=== PATIENT | female | born 1975 | race Caucasian/White ===

== ENCOUNTER → 2020-06-17 13:21 | Outpatient (CLI) | payer OTHER, SELFPAY ==
--- NOTE | ~2020-06-17 | US_ITS ---
EXAMINATION: US transvaginal DATE: 06/17/2020 13:43 INDICATION: Menorrhagia TECHNIQUE: Multiple endovaginal sonographic images of the pelvis were obtained. COMPARISON: None. FINDINGS: The uterus measures 9.5 x 3.9 x 4 cm. The endometrial complex measures 8 mm. The ovaries ar e not visualized however no adnexal abnormality is seen. There is no free fluid in the pelvis. IMPRESSION: 1. No sonographic correlate for the patient's symptoms. Reviewed, dictated and finalized at location A. WORKER PERSON
== END ==
PROVIDERS: Visit Provider Nurse Practitioner
DX: N92.0 Excessive and frequent menstruation with regular cycle (principal)
CPT/HCPCS: 76830

== ENCOUNTER → 2020-07-31 15:36 | Outpatient (CLI) | payer OTHER, SELFPAY ==
--- NOTE | ~2020-07-31 | MM_ITS ---
EXAMINATION: MM screening [facility] BI w delores HISTORY: Screening mammogram TECHNIQUE: Craniocaudal and mediolateral oblique 3-D tomosynthesis images were obtained and synthetic 2-D images were generated. CAD analysis was submitted and interpreted. COMPARISON: 06/11/2019, 12/18/2018, 07/20/2018 diagnostic left mammogram and limited left breast ultraso und examinations 07/10/2018, 06/27/2017, 06/05/2016 bilateral digital screening mammogram examinations BREAST PARENCHYMAL COMPOSITION: There are scattered areas of fibroglandular density. FINDINGS: Bilateral small axillary tail intramammary lymph nodes. There is no evidence of suspicious mass, calcification, or architectural distortion to suggest malignancy in either breast. There has be en no suspicious interval change. IMPRESSION: 1. No mammographic evidence of malignancy. 2. Recommend routine screening mammography in one year. BI-RADS Category 2: Benign finding(s). Reviewed, dictated and finalized at location A. OGIC NURSE
== END ==
PROVIDERS: Visit Provider Nurse Practitioner
DX: Z12.31 Encounter for screening mammogram for malignant neoplasm of breast (principal)
CPT/HCPCS: 77063; 77067

== ENCOUNTER → 2020-08-29 00:04 | Outpatient (CLI) | payer OTHER, SELFPAY ==
[2020-08-29 19:00] LABS: SARS-CoV-2 RNA PCR Negative
== END ==
PROVIDERS: Visit Provider Obstetrics & Gynecology Gynecology
DX: Z01.812 Encounter for preprocedural laboratory examination (principal); Z20.822 Contact with and (suspected) exposure to COVID-19
CPT/HCPCS: C9803; U0003; U0005

== ENCOUNTER 2020-08-29 07:42 | Outpatient (CLI) | payer OTHER, SELFPAY ==
[2020-08-29 08:17] LABS: Hematocrit 36.2 % (37.0-47.0); Hemoglobin 10.9 g/dL (12.0-15.0)
== END 2020-08-29 07:43 | disposition home or self-care (01) ==
PROVIDERS: PCP Family Medicine Adolescent Medicine; Visit Provider Anesthesiology
DX: Z01.818 Encounter for other preprocedural examination (principal); D64.9 Anemia, unspecified
CPT/HCPCS: 36415; 85014; 85018

== ENCOUNTER 2020-09-01 01:48 | Day surgery (SDC) | payer OTHER, SELFPAY ==
[2020-08-26 10:04] VITALS: BMI 25.0
--- NOTE | 2020-08-29 14:40 | P.PNAN_ITS ---
Anes - Initial Pre Proc Eval Procedure: Operation Date: 09/01/20 07:30 Proposed Procedures p Hysteroscopy Dilation and Curettage With Myosure - Sierra Lewis MD Date/Time: 08/29/20 14:40 Surgeon: Sierra Lewis MD Pre Op Diagnosis: Endometrial Polyps Patient Data Age: 44 Gender: F Height: 1.7 m Weight: 72.57 kg Allergies Allergy/AdvReac Type Severity Reaction Status Date / Time No Known Allergies Allergy Mild Verified 09/01/20 06:22 Home Medications Medication Instructions Recorded Confirmed Type duloxetine 60 mg PO DAILY 07/06/19 09/01/20 History ergocalciferol (vitamin D2) 1,250 mcg PO DAILY 07/06/19 09/01/20 History [Vitamin D2] pantoprazole 40 mg PO DAILY 07/06/19 09/01/20 History dextroamphetamine-amphetamine 20 mg PO DAILY 08/26/20 09/01/20 History [Adderall XR] ferrous sulfate 324 mg PO DAILY 08/26/20 09/01/20 History Patient hx anesthesia problems: none Family hx anesthesia problems: none [facility] Past Medical History Medical History (Updated 08/29/20 @ 14:41 by Joaquin Greenberg MD) Anxiety Chronic GERD Social History Social History Smoking status: Never smoker Second hand tobacco smoke exposure: No Substance use: never Living arrangements: with family Spiritual care concerns: No Anes - Eval Final PreProcedure Day of Procedure 08/29/20 14:40 Patient weight: normal Heart: regular rate and rhythm Lungs: clear to auscultation and normal air movement Airway: Mallampati scale class II Neurological: alert and oriented Last oral intake: >/= 8 hours ASA classification: II Emergent: no Anesthetic plan: proceed Anesthesia type and monitoring: general GIVS and LMA Informed Consent: The patient's anesthetic plan and its attendant risks and benefits were discussed with the patient/family/POA. Questions were solicited and answers provided to the satisfaction of the patient/family/POA.
[2020-09-01] MEDS: ACETAMINOPHEN 500 MG TABLET 1000 MG PO (06:27)
[2020-09-01] MEDS: LACTATED RINGERS 1,000 ML 30 ML IV CONT (06:46)
[2020-09-01 07:12] VITALS: BP 116/65; PULSE 63; RESP 16; TEMP 36.3; O2SAT 100
--- NOTE | 2020-09-01 07:23 | PM.HPGS ---
History of Present Illness History of Present Illness Consent: Risks, benefits, and alternatives have been discussed and questions answered. Patient agrees to proceed with procedure. Chief complaint: Endometrial Polyps Narrative: Criss Carlisle is a 44 year old female here for menorrhagia. Office hysteroscopy showed several polyps that were not able to be removed. Recommend to proceed with hysteroscopy with myosure and D&C. Risks of infection, bleeding, perforation, and fluid imbalance reviewed. Patient agrees to proceed. Review of Systems Review of Systems: Narrative: not repeated day of surgery; patient states no changes in status PMFSH Past Medical History Medical History (Updated 09/01/20 @ 07:27 by Sierra Lewis MD) Anxiety Chronic GERD (normal spontaneous vaginal delivery) x 1 Oral cyst 7 surgical procedures for removal Spontaneous x 2 Status post hysteroscopy Surgical History Surgical History (Updated 09/01/20 @ 07:26 by Sierra Lewis MD) History of x 2 Social History Social History Smoking status: Never smoker Second hand tobacco smoke exposure: No Substance use: never Living arrangements: with family Spiritual care concerns: No Meds Home Medications and Allergies Home Medications Medication Instructions Recorded Confirmed Type duloxetine 60 mg PO DAILY 07/06/19 09/01/20 History ergocalciferol (vitamin D2) 1,250 mcg PO DAILY 07/06/19 09/01/20 History [Vitamin D2] pantoprazole 40 mg PO DAILY 07/06/19 09/01/20 History dextroamphetamine-amphetamine 20 mg PO DAILY 08/26/20 09/01/20 History [Adderall XR] ferrous sulfate 324 mg PO DAILY 08/26/20 09/01/20 History Allergies Allergy/AdvReac Type Severity Reaction Status Date / Time No Known Allergies Allergy Mild Verified 09/01/20 06:22 Vital Signs Vital Signs - 24 hr 09/01/20 07:12 Temperature 97.3 F L Pulse Rate 63 Respiratory Rate 16 Blood Pressure 116/65 Pulse Oximetry 100 Exam Const: General: healthy appearing and alert Orientation/consciousness: patient oriented x3 Resp: Effort & Inspection: normal respiratory effort Auscultation: clear to auscultation bilaterally Cardio: Rate: regular rate Rhythm: regular rhythm GI: GI Palp: Yes Soft to palpation, No Tenderness to palpation present (GI) and No Palpable mass present : External Female Exam: normal external appearance Speculum Exam - Vagina: normal appearance of the vagina and normal vaginal discharge Speculum Exam - Cervix: normal appearance of the cervix Bimanual exam- vagina & uterus: uterine size normal and consistency normal Bimanual Exam- Adnexa, other: normal adnexae and No adnexal tenderness Neuro: General: patient oriented x3 Assessment and Plan Assessment and plan (1) Menorrhagia: Code(s): N92.0 - Excessive and frequent menstruation with regular cycle Status: Acute Assessment and Plan: proceed with myosure resection of suspected polyps with D&C
--- NOTE | 2020-09-01 07:28 | WPDHPUPDATE1 ---
History and Physical Update Update Date/Time: 09/01/20 07:28 History and Physical has been reviewed, including an updated exam of the patient. There are NO changes in the patient's condition. Risks, benefits, and alternatives have been discussed and questions answered. Patient agrees to proceed with procedure.
[2020-09-01] MEDS: KETOROLAC 30 MG/ML VIAL (*BKC) IV PUSH (07:56)
--- NOTE | 2020-09-01 08:01 | P.OP_ITS ---
Procedure Note - Detailed Date of procedure: 09/01/20 Pre-op diagnosis: Endometrial Polyps Menorrhagia Post-op diagnosis: same Procedure performed: D&C hysteroscopy with myosure resection of polyps Description of procedure: The patient was taken to the operating room and placed in the dorsal lithotomy position under anesthesia. She was prepped and draped in usual sterile fashion. Kingsford speculum was placed in the vagina and the cervix is grasped on the anterior lip with a tenaculum. The cervix is injected in each quadrant with 1% lidocaine. The sound is used and unable to enter the internal os. Os Finders are used and the cervix was able to opened. The uterus is then sounded to 10cm. The cervix is serially dilated with Hegar. The diagnostic hysteroscope was placed with the stated findings. The MyoSure device was opened and placed and under direct visualization the multiple polyps are excised. The camera and device are removed and the medium sharp curette is used to sharply curette the endometrium until a good uterine cry was noted in all areas. All instruments were then removed and the patient is taken to recovery in stable condition after being awakened from anesthesia. Sponge, needle, and instrument counts are correct per the OR staff. Anesthesia: MAC and local Surgeon: Sierra Lewis MD Estimated blood loss (mL): 5 Drains: No Packing: No Pathology: yes (endometrial curettings and shavings) Complications: No immediate complications Condition: stable Disposition: PACU Findings: cervix stenotic; uterus 10 cm; multiple polyps noted in lower portion of uterus
[2020-09-01 08:05] VITALS: BP 132/69; PULSE 70; RESP 16; O2SAT 100
[2020-09-01 08:30] VITALS: BP 122/60; PULSE 60; RESP 20
[2020-09-01 09:00] VITALS: BP 127/67; PULSE 61; RESP 20
[2020-09-01 09:20] VITALS: BP 132/69; PULSE 61; RESP 20
== END 2020-09-01 09:25 | disposition home or self-care (01) ==
PROVIDERS: PCP Family Medicine Adolescent Medicine; Visit Provider Obstetrics & Gynecology Gynecology
PROC: 0U5B8ZZ Destruction of Endometrium, Via Natural or Artificial Opening Endoscopic (ICD-10-PCS; CPT 58563; principal; 2020-09-01 07:30)
DX: N92.0 Excessive and frequent menstruation with regular cycle (principal); N84.0 Polyp of corpus uteri; K21.9 Gastro-esophageal reflux disease without esophagitis; F41.9 Anxiety disorder, unspecified
CPT/HCPCS: 58558; 36415; 85014; 85018; 88305; A9270; C9803; J1100; J1885; J2250; J2405; J2704; J3010; J7030; J7120; U0003; U0005

== ENCOUNTER → 2021-10-05 16:05 | Outpatient (CLI) | payer OTHER, SELFPAY ==
--- NOTE | ~2021-10-05 | MM_ITS ---
EXAMINATION: MM screening [facility] BI w delores HISTORY: Screening mammogram TECHNIQUE: Craniocaudal and mediolateral oblique 3-D tomosynthesis images were obtained and synthetic 2-D images were generated. CAD analysis was submitted and interpreted. COMPARISON: July 31, 2020 bilateral screening mammogram 06/11/2019 diagnostic left mammogram and left breast ultrasound 12/18/2018 diagnostic left mammogram and left breast Limited ultrasound 07/20/2018 diagnostic left mammogram and limited left breast ultrasound 07/10/2018 bilateral screening mammogram BREAST PARENCHYMAL COMPOSITION: There are scattered areas of fibroglandular density. FINDINGS: There is no evidence of suspicious mass, calcification, or architectural distortion to sugg est malignancy in either breast. There has been no suspicious interval change. IMPRESSION: 1. No mammographic evidence of malignancy. 2. Recommend routine screening mammography in one year. BI-RADS Category 1: Negative Reviewed, dictated and finalized at location A.
== END ==
PROVIDERS: Visit Provider Nurse Practitioner
DX: Z12.31 Encounter for screening mammogram for malignant neoplasm of breast (principal)
CPT/HCPCS: 77063; 77067

== ENCOUNTER 2022-04-26 11:41 | Day surgery (SDC) | payer OTHER, SELFPAY ==
[2022-03-19 13:34] VITALS: BMI 27.5
[2022-04-09 13:18] VITALS: BMI 27.2
[2022-04-26 12:21] VITALS: BP 117/85; PULSE 76; RESP 12; TEMP 37.4; O2SAT 100; BMI 27.3
--- NOTE | 2022-04-26 12:27 | PM.HPGS ---
History of Present Illness History of Present Illness Consent: Risks, benefits, and alternatives have been discussed and questions answered. Patient agrees to proceed with procedure. Chief complaint: Neoplasm Screening Narrative: Criss Carlisle is a 46 year old female Presents for screening colonoscopy. Patient's current weight appetite and bowel movements are normal. She denies abdominal pain. She has had no bleeding. Family history is noncontributory. Patient presents today for screening exam. Review of Systems Review of Systems: Review of systems noncontributory. [facility] Past Medical History Medical History (Updated 04/26/22 @ 12:28 by Nestor Alexander MD) Anxiety Chronic GERD Menorrhagia (normal spontaneous vaginal delivery) x 1 Oral cyst 7 surgical procedures for removal Spontaneous x 2 Surgical History Surgical History (Updated 08/06/21 @ 15:25 by Stephen Herrera MD) History of x 2 History of dilatation and curettage 09/07 with hysteroscopy Family History Family History (Updated 08/10/21 @ 10:10 by Cleve Maldonado MA) Father Heart disease Hypertension Liver disease Malignant neoplasm of prostate Mother Hypertension Sibling Hypertension Social History Social History (Updated 08/10/21 @ 10:11 by Cleve Maldonado MA) Smoking status: Never smoker Second hand tobacco smoke exposure: No Alcohol intake: current Drinks per week: 10 Substance use: never Substance use type: does not use Living arrangements: with family Gender identity (if verbalized by the patient): Female Sexual Orientation (if Verbalized by the Patient): Straight or Heterosexual Spiritual care concerns: No Agree to blood products: Yes Meds Home Medications and Allergies Home Medications Medication Instructions Recorded Confirmed Type duloxetine 60 mg capsule,delayed See Rx Instructions .Route 10/08/21 04/09/22 Rx release .COMPLEX #90 caps sodium,potassium,mag sulfates 17.5 See Rx Instructions PO .COMPLEX 03/19/22 Rx gram-3.13 gram-1.6 gram oral soln #354 mL (Suprep Bowel Prep Kit) pantoprazole 40 mg tablet,delayed 40 mg PO DAILY #90 tabs 04/15/22 04/26/22 Rx release dextroamphetamine-amphetamine ER 20 mg PO PRN PRN Anxiety 04/26/22 04/26/22 History 20 mg 24hr capsule,extend release (Adderall XR) norelgestromin 150 mcg-e.estradiol 1 patch transdermal WEEKLY 04/26/22 04/26/22 History 35 mcg/24 hr weekly transderm patch (Xulane) Allergies Allergy/AdvReac Type Severity Reaction Status Date / Time No Known Allergies Allergy Mild Verified 04/26/22 12:20 Vital Signs Vital Signs - 24 hr 04/26/22 12:21 Temperature 99.3 F Pulse Rate 76 Respiratory Rate 12 Blood Pressure 117/85 Pulse Oximetry 100 Oxygen Delivery Room Air Exam Narrative: Physical exam reveals patient to be alert. Vital signs stable. HEENT exam is unremarkable. Patient is anicteric. Lungs are clear to auscultation and percussion. Heart is without murmur or extra sounds. Abdomen bowel sounds present soft nontender with no organomegaly. Digital external rectal exam is normal. Assessment and Plan Assessment and plan (1) Encounter for screening colonoscopy: Code(s): Z12.11 - Encounter for screening for malignant neoplasm of colon Status: Acute Assessment and Plan: Patient presents for screening colonoscopy. Appears to be at average risk for colon polyps. Further recommendations will be given after endoscopy.
--- NOTE | 2022-04-26 12:33 | WPDANESEPPF ---
Anes - Initial Pre Proc Eval Procedure: Operation Date: 04/26/22 13:30 Proposed Procedures p Screening Colonoscopy - Nestor Alexander MD Date/Time: 04/26/22 12:33 Surgeon: Nestor Alexander MD Pre Op Diagnosis: Neoplasm Screening Patient Data Age: 46 Gender: F Height: 1.7 m Weight: 79.25 kg Last Vital Signs Temp 37.4 C 04/26/22 12:21 Pulse 76 04/26/22 12:21 Resp 12 04/26/22 12:21 BP 117/85 04/26/22 12:21 Pulse Ox 100 04/26/22 12:21 O2 Del Method Room Air 04/26/22 12:21 Allergies Allergy/AdvReac Type Severity Reaction Status Date / Time No Known Allergies Allergy Mild Verified 04/26/22 12:20 Home Medications Medication Instructions Recorded Confirmed Type duloxetine 60 mg capsule,delayed See Rx Instructions .Route 10/08/21 04/09/22 Rx release .COMPLEX #90 caps sodium,potassium,mag sulfates 17.5 See Rx Instructions PO .COMPLEX 03/19/22 Rx gram-3.13 gram-1.6 gram oral soln #354 mL (Suprep Bowel Prep Kit) pantoprazole 40 mg tablet,delayed 40 mg PO DAILY #90 tabs 04/15/22 04/26/22 Rx release dextroamphetamine-amphetamine ER 20 mg PO PRN PRN Anxiety 04/26/22 04/26/22 History 20 mg 24hr capsule,extend release (Adderall XR) norelgestromin 150 mcg-e.estradiol 1 patch transdermal WEEKLY 04/26/22 04/26/22 History 35 mcg/24 hr weekly transderm patch (Xulane) Patient hx anesthesia problems: none Family hx anesthesia problems: none Results Review: All pre-operative results and documents have been reviewed as part of the pre-operative evaluation. [facility] Past Medical History Medical History Anxiety Chronic GERD Menorrhagia (normal spontaneous vaginal delivery) x 1 Oral cyst 7 surgical procedures for removal Spontaneous x 2 Surgical History Surgical History History of x 2 History of dilatation and curettage 09/07 with hysteroscopy Family History Family History Father Heart disease Hypertension Liver disease Malignant neoplasm of prostate Mother Hypertension Sibling Hypertension Social History Social History Smoking status: Never smoker Second hand tobacco smoke exposure: No Alcohol intake: current Drinks per week: 10 Substance use: never Substance use type: does not use Living arrangements: with family Gender identity (if verbalized by the patient): Female Sexual Orientation (if Verbalized by the Patient): Straight or Heterosexual Spiritual care concerns: No Agree to blood products: Yes Anes - Eval Final PreProcedure Day of Procedure 04/26/22 12:33 Patient weight: overweight Heart: regular rate and rhythm Lungs: clear to auscultation Airway: Mallampati scale class II Neurological: alert and oriented Last oral intake: >/= 8 hours ASA classification: II Emergent: no Anesthetic plan: proceed Anesthesia type and monitoring: general GIVS and standard monitoring Results Review: All pre-operative results and documents have been reviewed as part of the pre-operative evaluation. Informed Consent: The patient's anesthetic plan and its attendant risks and benefits were discussed with the patient/family/POA. Questions were solicited and answers provided to the satisfaction of the patient/family/POA.
[2022-04-26] MEDS: LACTATED RINGERS 1,000 ML 150 ML IV CONT (12:34)
[2022-04-26 13:11] VITALS: BP 139/83; PULSE 95; RESP 16; O2SAT 100
[2022-04-26 13:21] VITALS: BP 117/66; PULSE 78; RESP 16; O2SAT 100
[2022-04-26 13:31] VITALS: BP 116/68; PULSE 71; RESP 16; O2SAT 100
--- NOTE | 2022-04-26 13:35 | WPDANESPN ---
Anes - Prog Note Post-Op Date/Time: 04/26/22 13:35 Cardiovascular status: normal Respiratory status: normal Airway patency: baseline Mental status: baseline Post-Op hydration status: normal Vital Signs: Last Vital Signs Temp 37.4 C 04/26/22 12:21 Pulse 95 04/26/22 13:11 Resp 16 04/26/22 13:11 BP 139/83 04/26/22 13:11 Pulse Ox 100 04/26/22 13:11 O2 Del Method Room Air 04/26/22 13:11 Pain Score (VAS): 0/10 I/O: Intake & Output 04/25/22 04/26/22 04/26/22 23:59 07:59 15:59 Intake Total 150 Balance 150 Patient Feedback: Patient satisfied with anesthetic care.
--- NOTE | 2022-04-26 14:01 | SUR.PHASEII ---
1330; PT AWAKE AND ALERT. DENIES PAIN. STATES SHE IS READY TO GO HOME AND EAT LUNCH. 1350; RIDE HAS ARRIVED
== END 2022-04-26 13:50 | disposition home or self-care (01) ==
PROVIDERS: PCP Family Medicine Adolescent Medicine; Visit Provider Internal Medicine Gastroenterology
PROC: 0DJD8ZZ Inspection of Lower Intestinal Tract, Via Natural or Artificial Opening Endoscopic (ICD-10-PCS; CPT 45378; principal; 2022-04-26 13:30)
DX: Z12.11 Encounter for screening for malignant neoplasm of colon (principal)
CPT/HCPCS: 45378

== ENCOUNTER → 2022-08-30 15:45 | Outpatient (CLI) | payer OTHER, SELFPAY ==
--- NOTE | ~2022-08-30 | XR_ITS ---
EXAM: [id number] DATE: 08/30/2022 16:21 HISTORY: Pain in left knee s/p fall down stairs 3 wks ago,med pain . COMPARISON: None available. FINDINGS: Normal mineralization. No fracture or dislocation. No lytic or blastic lesion. Mild medial and lateral compartment osteoarthritis. No erosion or periosteal change. Soft tissues within normal limits. Trace left knee joint fluid. IMPRESSION: No acute osseous finding in the left knee. Reviewed, dictated and finalized at location K.
== END ==
PROVIDERS: PCP Family Medicine Adolescent Medicine; Visit Provider Family Medicine Adolescent Medicine
DX: M25.562 Pain in left knee (principal)
CPT/HCPCS: 73560

== ENCOUNTER → 2022-09-01 08:38 | Outpatient (CLI) | payer OTHER, SELFPAY ==
--- NOTE | ~2022-09-01 | MR_ITS ---
EXAMINATION: MR knee LT wo con DATE: 09/01/2022 09:32 INDICATION: Medial left knee pain and effusion post injury 3 weeks prior TECHNIQUE: Magnetic resonance imaging (MRI) of the left knee was performed without intravenous contra st. Sequences included coronal PD-weighted FSE, coronal PD-weighted FS FSE, sagittal T2-weighted FSE , sagittal PD-weighted FS FSE and axial PD weighted fat saturated FSE. COMPARISON: None. FINDINGS: Medial compartment: Medial meniscus is normal. Articular cartilage is normal. Lateral compartment: Small longitudinal horizontal tear extending to the inferior articular surface along the inferior art icular surface of the posterior horn of the lateral meniscus. Partial-thickness chondral ulceration w ithout degenerative subchondral changes along the central weightbearing lateral femoral condyle. Mild partial-thickness cartilage loss with smooth chondral surface along the lateral tibial plateau. Patellofemoral compartment: Deep chondral fissuring without degenerative subchondral changes at the medial patellar facet, apical ridge and medial side of the lateral facet. Additional mild partial-thickness chondral fissuring wit hout degenerative subchondral changes at the trochlear groove and medial trochlea. Ligaments and tendons: Anterior and posterior cruciate ligaments are normal. Mild edema surrounding the normal appearing med ial collateral ligament consistent with low-grade sprain. The fibular collateral ligament complex is normal. The extensor mechanism is normal. The visualized medial and lateral hamstring tendons as well as the iliotibial band are normal. Fluid: Minimal left knee joint effusion at the suprapatellar pouch. No loose osteochondral bodies identified . Osseous/other: Marrow edema along the posterior margins of the medial and lateral tibial plateaus, the former surrou nding small linear low signal intensity trabecular fracture line underlying the articular surface at the posterior medial aspect of the medial tibial plateau. No definitive fracture line at the lateral tibial plateau is more likely represents a bone contusion. Additional subarticular bone contusion wit h marrow edema and without discrete fracture line at the head of the fibula. No pathologic marrow rep lacing process. Increased fluid signal at the superficial suprapatellar fat pad consistent with fat p ad impingement syndrome. IMPRESSION: 1. Nondisplaced subarticular impaction fracture line along the posterior medial rim of the medial tib ial plateau and bone contusions along the posterior rim of the lateral plateau and underlying the art icular surface at the proximal head of the fibula. 2. Small longitudinal horizontal tear extending to the inferior articular surface of the posterior ho rn of the lateral meniscus. 3. Mild osteoarthritis with moderate grade chondromalacia in the lateral and patellofemoral compartme nts. 4. Low-grade sprain of the medial collateral ligament. 5. Mild edema in the superficial suprapatellar fat pad consistent with fat pad impingement syndrome. Reviewed, dictated and finalized at location B. IMPRESSION: 1. Nondisplaced subarticular impaction fracture line along the posterior medial rim of the medial tibial plateau and bone contusions along the posterior rim o f the lateral plateau and underlying the articular surface at the proximal head of the fibula. 2. Small longitudinal horizontal tear extending to the inferior articular surfa ce of the posterior horn of the lateral meniscus. 3. Mild osteoarthritis with moderate grade chondromalacia in the lateral and pa tellofemoral compartments. 4. Low-grade sprain of the medial collateral ligament. 5. Mild edema in the superficial suprapatellar fat pad consistent
== END ==
PROVIDERS: PCP Family Medicine Adolescent Medicine; Visit Provider Family Medicine Adolescent Medicine
DX: S82.145A Nondisplaced bicondylar fracture of left tibia, initial encounter for closed fracture (principal); S83.282A Other tear of lateral meniscus, current injury, left knee, initial encounter; S83.412A Sprain of medial collateral ligament of left knee, initial encounter; R60.9 Edema, unspecified; T14.90XA Injury, unspecified, initial encounter
CPT/HCPCS: 73721

== ENCOUNTER → 2022-11-01 14:50 | Outpatient (CLI) | payer OTHER, SELFPAY ==
--- NOTE | ~2022-11-01 | MM_ITS ---
EXAMINATION: MM screening [facility] BI w delores HISTORY: Screening mammogram TECHNIQUE: Craniocaudal and mediolateral oblique 3-D tomosynthesis images were obtained and synthetic 2-D images were generated. CAD analysis was submitted and interpreted. COMPARISON: 10/05/2021, 07/31/2020, 06/11/2019, 07/10/2018 BREAST PARENCHYMAL COMPOSITION: There are scattered areas of fibroglandular density. FINDINGS: No suspicious mass, calcification, or architectural distortion are identified in either elen ast to suggest malignancy. There has been no suspicious interval change. IMPRESSION: 1. No mammographic evidence of malignancy. 2. Recommend routine screening mammography in one year. BI-RADS Category 1: Negative Reviewed, dictated and finalized at location A.
== END ==
PROVIDERS: PCP Nurse Practitioner; Visit Provider Nurse Practitioner
DX: Z12.31 Encounter for screening mammogram for malignant neoplasm of breast (principal)
CPT/HCPCS: 77063; 77067

== ENCOUNTER 2023-03-28 05:47 | Day surgery (SDC) | payer OTHER, SELFPAY ==
[2023-03-16 10:08] VITALS: BMI 26.6
[2023-03-28 06:27] VITALS: BP 122/92; PULSE 78; RESP 19; TEMP 37.1; O2SAT 100
--- NOTE | 2023-03-28 07:07 | WPDANESEPPF ---
Anes - Initial Pre Proc Eval Procedure: Operation Date: 03/28/23 07:30 Proposed Procedures p Esophagogastroduodenoscopy - Nestor Alexander MD Date/Time: 03/28/23 07:07 Surgeon: Nestor Alexander MD Pre Op Diagnosis: Gerd without Esophagitis Patient Data Age: 47 Gender: F Height: 1.7 m Weight: 77 kg Last Vital Signs Temp 37.1 C 03/28/23 06:27 Pulse 78 03/28/23 06:27 Resp 19 03/28/23 06:27 BP 122/92 H 03/28/23 06:27 Pulse Ox 100 03/28/23 06:27 O2 Del Method Room Air 03/28/23 06:27 Allergies Allergy/AdvReac Type Severity Reaction Status Date / Time No Known Allergies Allergy Mild Verified 03/28/23 06:21 Home Medications Medication Instructions Recorded Confirmed Type dextroamphetamine-amphetamine ER 20 mg PO PRN PRN Anxiety #30 caps 07/13/22 03/28/23 Rx 20 mg 24hr capsule,extend release (Adderall XR) duloxetine 60 mg capsule,delayed See Rx Instructions .Route 10/04/22 03/28/23 Rx release .COMPLEX #90 caps pantoprazole 40 mg tablet,delayed 40 mg PO DAILY #90 tabs 01/10/23 03/28/23 Rx release metoclopramide HCl 10 mg tablet 10 mg PO Q6H PRN nausea and 03/07/23 03/28/23 Rx vomiting #30 tabs Patient hx anesthesia problems: none Family hx anesthesia problems: none Results Review: All pre-operative results and documents have been reviewed as part of the pre-operative evaluation. [facility] Past Medical History Medical History Anxiety Chronic GERD Menorrhagia (normal spontaneous vaginal delivery) x 1 Oral cyst 7 surgical procedures for removal Spontaneous x 2 Surgical History Surgical History History of x 2 History of dilatation and curettage 09/07 with hysteroscopy Family History Family History Father Heart disease Hypertension Liver disease Malignant neoplasm of prostate Mother Hypertension Sibling Hypertension Social History Social History Smoking packs per day: 1 Smoking cigarettes per day: 20.0 Years smoked: 10 Smoking pack-years: 10.00 Smoking status: Former smoker Tobacco type: cigarettes Second hand tobacco smoke exposure: No Alcohol intake: current Drinks per week: 18 Alcohol use details: PT STATES DRINKS 6-7 BEERS A DAY ON TUESDAY, TUESDAY, TUESDAY Substance use: never Substance use type: does not use Lack of Transportation: No Lack of Food: Never True Current Housing: I Have Housing Concerned About Future Housing: No Difficulty Paying Gas/Electric Bills: No Difficulty Paying for Meds: No Currently Unemployed: No Education: Bachelor's Degree Difficulty w/ Childcare or Family Care: No Living arrangements: with family Occupation/Education: occupation Gender identity (if verbalized by the patient): Female Sexual Orientation (if Verbalized by the Patient): Straight or Heterosexual Spiritual care concerns: No Agree to blood products: Yes Anes - Eval Final PreProcedure Day of Procedure 03/28/23 07:07 Patient weight: overweight Heart: regular rate and rhythm Lungs: clear to auscultation and normal air movement Airway: Mallampati scale class II Neurological: alert and oriented Last oral intake: >/= 8 hours ASA classification: II Emergent: no Anesthetic plan: proceed Anesthesia type and monitoring: general GIVS and standard monitoring Results Review: All pre-operative results and documents have been reviewed as part of the pre-operative evaluation. Informed Consent: The patient's anesthetic plan and its attendant risks and benefits were discussed with the patient/family/POA. Questions were solicited and answers provided to the satisfaction of the patient/family/POA.
[2023-03-28] MEDS: LACTATED RINGERS 1,000 ML 150 ML IV CONT (07:24)
--- NOTE | 2023-03-28 07:32 | PM.HPGS ---
History of Present Illness History of Present Illness Consent: Risks, benefits, and alternatives have been discussed and questions answered. Patient agrees to proceed with procedure. Chief complaint: Gerd without Esophagitis Narrative: Criss Carlisle is a 47 year old female Presents for EGD. Patient reports a long history of acid reflux. She previously has been on Protonix 40mg p.o. once daily for many years. Six months she has noticed increased regurgitation and substernal pain. She states this is worse with exercise. Patient reports 2 weeks ago her dose of Protonix was increased to twice a day. So was given a dose of metoclopramide. Is uncertain if this made any difference in the intervening 2 weeks is any dysphagia or weight loss. She has had no bleeding. Patient presents today for EGD. Review of Systems Review of Systems: Review of systems noncontributory. [facility] Past Medical History Medical History Anxiety Chronic GERD Menorrhagia (normal spontaneous vaginal delivery) x 1 Oral cyst 7 surgical procedures for removal Spontaneous x 2 Surgical History Surgical History History of x 2 History of dilatation and curettage 09/07 with hysteroscopy Family History Family History Father Heart disease Hypertension Liver disease Malignant neoplasm of prostate Mother Hypertension Sibling Hypertension Social History Social History Smoking packs per day: 1 Smoking cigarettes per day: 20.0 Years smoked: 10 Smoking pack-years: 10.00 Smoking status: Former smoker Tobacco type: cigarettes Second hand tobacco smoke exposure: No Alcohol intake: current Drinks per week: 18 Alcohol use details: PT STATES DRINKS 6-7 BEERS A DAY ON TUESDAY, TUESDAY, TUESDAY Substance use: never Substance use type: does not use Lack of Transportation: No Lack of Food: Never True Current Housing: I Have Housing Concerned About Future Housing: No Difficulty Paying Gas/Electric Bills: No Difficulty Paying for Meds: No Currently Unemployed: No Education: Bachelor's Degree Difficulty w/ Childcare or Family Care: No Living arrangements: with family Occupation/Education: occupation Gender identity (if verbalized by the patient): Female Sexual Orientation (if Verbalized by the Patient): Straight or Heterosexual Spiritual care concerns: No Agree to blood products: Yes Meds Home Medications and Allergies Home Medications Medication Instructions Recorded Confirmed Type dextroamphetamine-amphetamine ER 20 mg PO PRN PRN Anxiety #30 caps 07/13/22 03/28/23 Rx 20 mg 24hr capsule,extend release (Adderall XR) duloxetine 60 mg capsule,delayed See Rx Instructions .Route 10/04/22 03/28/23 Rx release .COMPLEX #90 caps pantoprazole 40 mg tablet,delayed 40 mg PO DAILY #90 tabs 01/10/23 03/28/23 Rx release metoclopramide HCl 10 mg tablet 10 mg PO Q6H PRN nausea and 03/07/23 03/28/23 Rx vomiting #30 tabs Allergies Allergy/AdvReac Type Severity Reaction Status Date / Time No Known Allergies Allergy Mild Verified 03/28/23 06:21 Vital Signs Vital Signs - 24 hr 03/28/23 06:27 Temperature 98.8 F Pulse Rate 78 Respiratory Rate 19 Blood Pressure 122/92 H Pulse Oximetry 100 Oxygen Delivery Room Air Exam Narrative: Physical exam reveals patient to be alert. Vital signs stable. HEENT exam is unremarkable is anicteric. Lungs are clear to auscultation and heart is without murmur or extra sounds. Abdomen bowel sounds are present soft nontender with no organomegaly. Assessment and Plan Assessment and plan (1) Chronic GERD: Code(s): K21.9 - Gastro-esophageal reflux disease without
[2023-03-28 07:55] VITALS: BP 113/56; PULSE 70; RESP 18; O2SAT 100
[2023-03-28 08:05] VITALS: BP 123/86; PULSE 69; RESP 16; O2SAT 100
[2023-03-28 08:15] VITALS: BP 127/67; PULSE 65; RESP 16; O2SAT 100
--- NOTE | 2023-03-28 09:55 | WPDANESPN ---
Anes - Prog Note Post-Op Date/Time: 03/28/23 09:55 Cardiovascular status: normal Respiratory status: normal Airway patency: baseline Mental status: baseline Post-Op hydration status: normal Vital Signs: Last Vital Signs Temp 37.1 C 03/28/23 06:27 Pulse 65 03/28/23 08:15 Resp 16 03/28/23 08:15 BP 127/67 03/28/23 08:15 Pulse Ox 100 03/28/23 08:15 O2 Del Method Room Air 03/28/23 08:15 Pain Score (VAS): 0 I/O: Intake & Output 03/27/23 03/28/23 03/28/23 23:59 07:59 15:59 Intake Total 200 0 Balance 200 0 Post-procedural complaints: none Patient Feedback: Patient satisfied with anesthetic care. Other Findings: Patient vital signs back to baseline. Patient denies nausea and vomiting. Patient's pain under control. Patient OK for discharge.
== END 2023-03-28 08:28 | disposition home or self-care (01) ==
PROVIDERS: PCP Family Medicine Adolescent Medicine; Visit Provider Internal Medicine Gastroenterology
PROC: 0DJ08ZZ Inspection of Upper Intestinal Tract, Via Natural or Artificial Opening Endoscopic (ICD-10-PCS; CPT 43235; principal; 2023-03-28 07:30)
DX: K21.9 Gastro-esophageal reflux disease without esophagitis (principal); R10.13 Epigastric pain
CPT/HCPCS: 43239

== ENCOUNTER 2023-04-04 00:54 | Day surgery (SDC) | payer OTHER, SELFPAY ==
[2023-03-30 11:46] VITALS: BMI 26.6
--- NOTE | 2023-03-30 11:50 | PC.NURSE ---
Report to the Outpatient Waiting Room, entrance under the green pavilion located off [facility], at time 0815 on date 04/04/23. Planned Procedure Time: 1015. Time changes happen often and if your time is changed the preop area will call you the afternoon before. - You and your visitor will be asked to self-screen and do not enter if you have any COVID symptoms. - A mask is optional within the hospital at this time. Patients may have clear liquids (water, carbonated beverages, clear teas, apple juice) until 3 hours prior to surgery with a maximum of 20 ounces. - No food from midnight until time of surgery Take the following medications with a SIP of water the morning of surgery: DULOXETINE DO NOT STOP ANY OF YOUR OTHER PRESCRIPTION MEDICATIONS PRIOR TO SURGERY ?EXCEPT THE FOLLOWING Medications to discontinue per physician: N/A Date to take last dose: N/A Please no make-up, nail persian, hairspray, perfume, deodorant, or body powder the day of surgery. No jewelry (including any body piercings) or valuables the day of surgery, leave them at home. Please take a shower or bath the night before, or the morning of, surgery with an antibacterial soap. Wear comfortable, loose fitting clothing. - Jewelry must be removed prior to entering the operating room. Rings and piercings that are not removed may be cut off. - The hospital will not accept responsibility for valuables. - Please leave all valuables, including medications, at home the day of surgery. If you are going home after surgery, a licensed equipment driver must drive you home. - NO public transportation without another adult if you receive anesthesia. - We recommend that an adult stay with you for 24 hours following discharge. - We also recommend that you do not drive, make important decision, drink alcoholic beverages, or take any drugs that were not prescribed by your health care provider for at least 24 hours after your discharge time. Follow any additional instructions given to you from your surgeon. If you or anyone in your household have experienced Covid symptoms in the past week, please notify your surgeon or the nurse liaison at the phone number below for possible testing. Telephone instructions given to PT - JUSTO WILLIAMSON and asked if any additional questions and then verbalized understanding. Patient advised to call surgeon office or pre surgery nurse liaison [phone] if any additional questions.
--- NOTE | 2023-04-04 07:31 | WPDHPUPDATE1 ---
History and Physical Update Update Date/Time: 04/04/23 07:31 History and Physical has been reviewed, including an updated exam of the patient. There are NO changes in the patient's condition. Risks, benefits, and alternatives have been discussed and questions answered. Patient agrees to proceed with procedure.
--- NOTE | 2023-04-04 07:31 | PM.HPGS ---
History of Present Illness History of Present Illness Consent: Risks, benefits, and alternatives have been discussed and questions answered. Patient agrees to proceed with procedure. Chief complaint: menorrhagia Narrative: Criss Carlisle is a 47 year old female with heavy and prolonged cycles. The patient has been on Xulane without success. Patient with a history of hysteroscopy D&C and 08/2020 with benign findings but a large endometrial polyp. It was recommended to proceed with D&C hysteroscopy to further evaluate. Risks of infection, bleeding, perforation, and possible pathology are reviewed. Patient voices understanding and agrees to proceed. Review of Systems Review of Systems: not repeated day of surgery; patient states no changes in status PMFSH Past Medical History Medical History (Updated 04/04/23 @ 07:37 by Sierra Lewis MD) Anxiety Chronic GERD (normal spontaneous vaginal delivery) x 1 Oral cyst 7 surgical procedures for removal Spontaneous x 2 Surgical History Surgical History (Updated 04/04/23 @ 07:35 by Sierra Lewis MD) History of x 1 for twins History of dilatation and curettage 09/07 with hysteroscopy Family History Family History Father Heart disease Hypertension Liver disease Malignant neoplasm of prostate Mother Hypertension Sibling Hypertension Social History Social History Smoking packs per day: 1 Smoking cigarettes per day: 20.0 Years smoked: 6 Smoking pack-years: 6.00 Smoking status: Former smoker Tobacco type: cigarettes Second hand tobacco smoke exposure: No Smoking end date: 06/20/99 Alcohol intake: current Drinks per week: 10 Alcohol use details: BEER THURSDAYS AND SATURDAYS ONLY Substance use: never Substance use type: does not use Lack of Transportation: No Lack of Food: Never True Current Housing: I Have Housing Concerned About Future Housing: No Difficulty Paying Gas/Electric Bills: No Difficulty Paying for Meds: No Currently Unemployed: No Education: Bachelor's Degree Difficulty w/ Childcare or Family Care: No Living arrangements: with family Occupation/Education: occupation Gender identity (if verbalized by the patient): Female Sexual Orientation (if Verbalized by the Patient): Straight or Heterosexual Spiritual care concerns: No Agree to blood products: Yes Meds Home Medications and Allergies Home Medications Medication Instructions Recorded Confirmed Type duloxetine 60 mg capsule,delayed See Rx Instructions .Route 10/04/22 03/30/23 Rx release .COMPLEX #90 caps pantoprazole 40 mg tablet,delayed 40 mg PO DAILY #90 tabs 01/10/23 03/30/23 Rx release Allergies Allergy/AdvReac Type Severity Reaction Status Date / Time No Known Allergies Allergy Mild Verified 04/04/23 07:29 Exam Const: General: healthy appearing and alert Orientation/consciousness: patient oriented x3 Resp: Effort & Inspection: normal respiratory effort GI: GI Palp: Yes Soft to palpation, No Tenderness to palpation present (GI) and No Palpable mass present : External Female Exam: normal external appearance Speculum Exam - Vagina: normal appearance of the vagina and normal vaginal discharge Speculum Exam - Cervix: normal appearance of the cervix Bimanual exam- vagina & uterus: uterine size normal and consistency normal Bimanual Exam- Adnexa, other: normal adnexae and No adnexal tenderness Neuro: General: patient oriented x3 Assessment and Plan Assessment and plan (1) Menorrhagia: Code(s): N92.0 - Excessive and frequent menstruation with regular cycle Status: Inactive Assessment and Plan: Plan to proceed with D&C hysteroscopy
[2023-04-04] MEDS: ACETAMINOPHEN 500 MG TABLET 1000 MG PO (07:45)
[2023-04-04] MEDS: LACTATED RINGERS 1,000 ML 30 ML IV CONT (07:45)
[2023-04-04 07:51] VITALS: BP 132/75; PULSE 69; RESP 20; TEMP 36.6; O2SAT 100; BMI 25.9
--- NOTE | 2023-04-04 08:33 | WPDANESEPPF ---
Anes - Initial Pre Proc Eval Procedure: Operation Date: 04/04/23 09:15 Proposed Procedures p Hysteroscopy Dilation and Curettage - Sierra Lewis MD Date/Time: 04/04/23 08:33 Surgeon: Sierra Lewis MD Pre Op Diagnosis: menorrhagia Patient Data Age: 47 Gender: F Height: 1.7 m Weight: 75.3 kg Last Vital Signs Temp 36.6 C 04/04/23 07:51 Pulse 69 04/04/23 07:51 Resp 20 04/04/23 07:51 BP 132/75 04/04/23 07:51 Pulse Ox 100 04/04/23 07:51 Allergies Allergy/AdvReac Type Severity Reaction Status Date / Time No Known Allergies Allergy Mild Verified 04/04/23 07:29 Home Medications Medication Instructions Recorded Confirmed Type duloxetine 60 mg capsule,delayed See Rx Instructions .Route 10/04/22 04/04/23 Rx release .COMPLEX #90 caps pantoprazole 40 mg tablet,delayed 40 mg PO DAILY #90 tabs 01/10/23 04/04/23 Rx release Patient hx anesthesia problems: none Family hx anesthesia problems: none Results Review: All pre-operative results and documents have been reviewed as part of the pre-operative evaluation. [facility] Past Medical History Medical History Anxiety Chronic GERD (normal spontaneous vaginal delivery) x 1 Oral cyst 7 surgical procedures for removal Spontaneous x 2 Surgical History Surgical History History of x 1 for twins History of dilatation and curettage 09/07 with hysteroscopy Family History Family History Father Heart disease Hypertension Liver disease Malignant neoplasm of prostate Mother Hypertension Sibling Hypertension Social History Social History Smoking packs per day: 1 Smoking cigarettes per day: 20.0 Years smoked: 6 Smoking pack-years: 6.00 Smoking status: Former smoker Tobacco type: cigarettes Second hand tobacco smoke exposure: No Smoking end date: 06/20/99 Alcohol intake: current Drinks per week: 10 Alcohol use details: BEER THURSDAYS AND SATURDAYS ONLY Substance use: never Substance use type: does not use Lack of Transportation: No Lack of Food: Never True Current Housing: I Have Housing Concerned About Future Housing: No Difficulty Paying Gas/Electric Bills: No Difficulty Paying for Meds: No Currently Unemployed: No Education: Bachelor's Degree Difficulty w/ Childcare or Family Care: No Living arrangements: with family Occupation/Education: occupation Gender identity (if verbalized by the patient): Female Sexual Orientation (if Verbalized by the Patient): Straight or Heterosexual Spiritual care concerns: No Agree to blood products: Yes Anes - Eval Final PreProcedure Day of Procedure 04/04/23 08:33 Patient weight: overweight Heart: regular rate and rhythm Lungs: clear to auscultation Airway: Mallampati scale class II Neurological: alert and oriented Last oral intake: >/= 8 hours ASA classification: II Emergent: no Anesthetic plan: proceed Anesthesia type and monitoring: general GIVS and standard monitoring Results Review: All pre-operative results and documents have been reviewed as part of the pre-operative evaluation. Informed Consent: The patient's anesthetic plan and its attendant risks and benefits were discussed with the patient/family/POA. Questions were solicited and answers provided to the satisfaction of the patient/family/POA.
--- NOTE | 2023-04-04 09:33 | P.OP_ITS ---
Procedure Note - Detailed Date of Procedure 04/04/23 Pre-op Diagnosis menorrhagia Post-op Diagnosis Same Procedure Performed D&C hysteroscopy Surgeon Sierra Lewis MD Anesthesia MAC Findings Uterus sounds to 11cm and appears grossly normal. Description of Procedure The patient is taken to the operating room and placed under anesthesia in the dorsal lithotomy position. She was prepped and draped in the usual sterile fashion. [place] speculum was placed in the vagina and the cervix grasped on the anterior lip with a tenaculum. The uterus is sounded to 11cm. The diagnostic hysteroscope was placed and with no abnormalities noted it is removed. The sharp 00 curette is used to curette the endometrium until a good uterine cry is noted in all areas. All instruments were then removed. Sponge, needle, and instrument counts are correct per the OR staff. Patient was awakened from anesthesia and taken to recovery in stable condition. Estimated Blood Loss 5 Drains No Packing No Pathology Yes (Endometrial curettings) Complications No immediate complications Condition Stable Disposition PACU
[2023-04-04 09:35] VITALS: BP 126/74; PULSE 62; RESP 12; O2SAT 100
[2023-04-04 10:05] VITALS: BP 103/61; PULSE 59; RESP 16
[2023-04-04 10:35] VITALS: BP 115/73; PULSE 58; RESP 16
== END 2023-04-04 10:45 | disposition home or self-care (01) ==
PROVIDERS: PCP Family Medicine Adolescent Medicine; Visit Provider Obstetrics & Gynecology Gynecology
PROC: 0U5B8ZZ Destruction of Endometrium, Via Natural or Artificial Opening Endoscopic (ICD-10-PCS; CPT 58563; principal; 2023-04-04 09:15)
DX: N92.0 Excessive and frequent menstruation with regular cycle (principal); F41.9 Anxiety disorder, unspecified; K21.9 Gastro-esophageal reflux disease without esophagitis; Z87.891 Personal history of nicotine dependence
CPT/HCPCS: 58558; 88305; A9270; J1100; J2250; J2405; J2704; J3010; J7120

== ENCOUNTER 2023-04-18 01:27 | Day surgery (SDC) | payer OTHER, SELFPAY ==
--- NOTE | 2023-04-06 14:09 | PC.NURSE ---
Report to the Outpatient Waiting Room, entrance under the green pavilion located off [facility], at time 0930 on date 04/18/23. Planned Procedure Time: 1130. Time changes happen often and if your time is changed the preop area will call you the afternoon before. - You and your visitor will be asked to self-screen and do not enter if you have any COVID symptoms. - A mask is optional within the hospital at this time. Patients may have clear liquids (water, carbonated beverages, clear teas, apple juice) until 3 hours prior to surgery with a maximum of 20 ounces. 0830 - No food from midnight until time of surgery - Infants may have breast milk until 4 hours before surgery, formula 6 hours prior to surgery. - Children will be allowed to drink immediately following surgery. If applicable, please bring a bottle or sippy cup to assist with drinking. Juice, water, soda, and popsicles are readily available. For infants on formula, please bring formula the day of surgery. Pacifiers are allowed. Take the following medications with a SIP of water the morning of surgery: duloxetine DO NOT STOP ANY OF YOUR OTHER PRESCRIPTION MEDICATIONS PRIOR TO SURGERY ?EXCEPT THE FOLLOWING Medications to discontinue per physician protonix Date to take last dose 04/17/23- protonix Please no make-up, nail swazi, hairspray, perfume, deodorant, or body powder the day of surgery. No jewelry (including any body piercings) or valuables the day of surgery, leave them at home. Please take a shower or bath the night before, or the morning of, surgery with an antibacterial soap. Wear comfortable, loose fitting clothing. Children are encouraged to wear pajamas. - Jewelry must be removed prior to entering the operating room. Rings and piercings that are not removed may be cut off. - The hospital will not accept responsibility for valuables. - Please leave all valuables, including medications, at home the day of surgery. If you are going home after surgery, a licensed hack driver must drive you home. - NO public transportation without another adult if you receive anesthesia. - We recommend that an adult stay with you for 24 hours following discharge. - We also recommend that you do not drive, make important decision, drink alcoholic beverages, or take any drugs that were not prescribed by your health care provider for at least 24 hours after your discharge time. For Pediatric surgeries, we recommend two adults accompany the child home. Follow any additional instructions given to you from your surgeon. If you or anyone in your household have experienced Covid symptoms in the past week, please notify your surgeon or the nurse liaison at the phone number below for possible testing. Telephone instructions given to Patient- Criss Carlisle and asked if any additional questions and then verbalized understanding. Patient advised to call surgeon office or pre surgery nurse liaison [phone] if any additional questions.
[2023-04-06 14:13] VITALS: BMI 26.6
--- NOTE | 2023-04-18 07:23 | WPDHPUPDATE1 ---
History and Physical Update Update Date/Time: 04/18/23 07:23 History and Physical has been reviewed, including an updated exam of the patient. There are NO changes in the patient's condition. Risks, benefits, and alternatives have been discussed and questions answered. Patient agrees to proceed with procedure.
--- NOTE | 2023-04-18 07:23 | PM.HPGS ---
History of Present Illness History of Present Illness Consent: Risks, benefits, and alternatives have been discussed and questions answered. Patient agrees to proceed with procedure. Chief complaint: menorrhagia Narrative: Criss Carlisle is a 47 year old female with worsening cycles. D&C hysteroscopy was benign. Patient had significant breakthrough bleeding with Xulane patch. The patient was given options and decided to proceed with endometrial ablation. Risks of infection, bleeding, perforation, and success were reviewed. Patient voices understanding and agrees to proceed. Review of Systems Review of Systems: not repeated day of surgery; patient states no changes in status PMFSH Past Medical History Medical History Anxiety Chronic GERD (normal spontaneous vaginal delivery) x 1 Oral cyst 7 surgical procedures for removal Spontaneous x 2 Surgical History Surgical History (Updated 04/18/23 @ 07:25 by Sierra Lewis MD) History of x 1 for twins History of dilatation and curettage 09/07 and 04/11 with hysteroscopy - benign each time Family History Family History Father Heart disease Hypertension Liver disease Malignant neoplasm of prostate Mother Hypertension Sibling Hypertension Social History Social History Smoking packs per day: 0.5 Smoking cigarettes per day: 10.0 Years smoked: 5 Smoking pack-years: 2.50 Smoking status: Former smoker Tobacco type: cigarettes Second hand tobacco smoke exposure: No Smoking end date: 06/20/99 Alcohol intake: current Drinks per week: 10 Alcohol use details: Beer Substance use: never Substance use type: does not use Lack of Transportation: No Lack of Food: Never True Current Housing: I Have Housing Concerned About Future Housing: No Difficulty Paying Gas/Electric Bills: No Difficulty Paying for Meds: No Currently Unemployed: No Education: Bachelor's Degree Difficulty w/ Childcare or Family Care: No Living arrangements: with family Occupation/Education: occupation Gender identity (if verbalized by the patient): Female Sexual Orientation (if Verbalized by the Patient): Straight or Heterosexual Spiritual care concerns: No Agree to blood products: Yes Meds Home Medications and Allergies Home Medications Medication Instructions Recorded Confirmed Type duloxetine 60 mg capsule,delayed See Rx Instructions .Route 10/04/22 04/06/23 Rx release .COMPLEX #90 caps pantoprazole 40 mg tablet,delayed 40 mg PO BID 04/06/23 04/06/23 History release dextroamphetamine-amphetamine 20 20 mg PO BID #60 tabs 04/11/23 Rx mg tablet Allergies Allergy/AdvReac Type Severity Reaction Status Date / Time No Known Allergies Allergy Mild Verified 04/06/23 14:02 Exam Const: General: healthy appearing and alert Orientation/consciousness: patient oriented x3 Resp: Effort & Inspection: normal respiratory effort GI: GI Palp: Yes Soft to palpation, No Tenderness to palpation present (GI) and No Palpable mass present : External Female Exam: normal external appearance Speculum Exam - Vagina: normal appearance of the vagina and normal vaginal discharge Speculum Exam - Cervix: normal appearance of the cervix Bimanual exam- vagina & uterus: uterine size normal and consistency normal Bimanual Exam- Adnexa, other: normal adnexae and No adnexal tenderness Neuro: General: patient oriented x3 Assessment and Plan Assessment and plan (1) Menorrhagia: Code(s): N92.0 - Excessive and frequent menstruation with regular cycle Status: Inactive Assessment and Plan: Plan to proceed with Alicia endometrial ablation
[2023-04-18 09:43] VITALS: BP 128/82; PULSE 81; RESP 20; TEMP 36.9; O2SAT 100
[2023-04-18] MEDS: ACETAMINOPHEN 500 MG TABLET 1000 MG PO (10:00)
[2023-04-18] MEDS: LACTATED RINGERS 1,000 ML 30 ML IV CONT (10:05)
--- NOTE | 2023-04-18 10:23 | WPDANESEPPF ---
Anes - Initial Pre Proc Eval Procedure: Operation Date: 04/18/23 11:30 Proposed Procedures p Hysteroscopy, with Alicia Endometrial Ablation - Sierra Lewis MD Date/Time: 04/18/23 10:23 Surgeon: Sierra Lewis MD Pre Op Diagnosis: menorrhagia Patient Data Age: 47 Gender: F Height: 1.7 m Weight: 79.3 kg Last Vital Signs Temp 36.9 C 04/18/23 09:43 Pulse 81 04/18/23 09:43 Resp 20 04/18/23 09:43 BP 128/82 04/18/23 09:43 Pulse Ox 100 04/18/23 09:43 O2 Del Method Room Air 04/18/23 09:43 Allergies Allergy/AdvReac Type Severity Reaction Status Date / Time No Known Allergies Allergy Mild Verified 04/18/23 09:58 Home Medications Medication Instructions Recorded Confirmed Type duloxetine 60 mg capsule,delayed See Rx Instructions .Route 10/04/22 04/06/23 Rx release .COMPLEX #90 caps pantoprazole 40 mg tablet,delayed 40 mg PO BID 04/06/23 04/06/23 History release dextroamphetamine-amphetamine 20 20 mg PO BID #60 tabs 04/11/23 Rx mg tablet Patient hx anesthesia problems: none Family hx anesthesia problems: none Results Review: All pre-operative results and documents have been reviewed as part of the pre-operative evaluation. [facility] Past Medical History Medical History Anxiety Chronic GERD (normal spontaneous vaginal delivery) x 1 Oral cyst 7 surgical procedures for removal Spontaneous x 2 Surgical History Surgical History History of x 1 for twins History of dilatation and curettage 09/07 and 04/11 with hysteroscopy - benign each time Family History Family History Father Heart disease Hypertension Liver disease Malignant neoplasm of prostate Mother Hypertension Sibling Hypertension Social History Social History Smoking packs per day: 0.5 Smoking cigarettes per day: 10.0 Years smoked: 5 Smoking pack-years: 2.50 Smoking status: Former smoker Tobacco type: cigarettes Second hand tobacco smoke exposure: No Smoking end date: 06/20/99 Alcohol intake: current Drinks per week: 10 Alcohol use details: Beer Substance use: never Substance use type: does not use Lack of Transportation: No Lack of Food: Never True Current Housing: I Have Housing Concerned About Future Housing: No Difficulty Paying Gas/Electric Bills: No Difficulty Paying for Meds: No Currently Unemployed: No Education: Bachelor's Degree Difficulty w/ Childcare or Family Care: No Living arrangements: with family Occupation/Education: occupation Gender identity (if verbalized by the patient): Female Sexual Orientation (if Verbalized by the Patient): Straight or Heterosexual Spiritual care concerns: No Agree to blood products: Yes Anes - Eval Final PreProcedure Day of Procedure 04/18/23 10:23 Patient weight: overweight Heart: regular rate and rhythm Lungs: clear to auscultation Airway: Mallampati scale class III Neurological: alert and oriented Last oral intake: >/= 8 hours ASA classification: II Emergent: no Anesthetic plan: proceed Anesthesia type and monitoring: general GIVS and standard monitoring Results Review: All pre-operative results and documents have been reviewed as part of the pre-operative evaluation. Informed Consent: The patient's anesthetic plan and its attendant risks and benefits were discussed with the patient/family/POA. Questions were solicited and answers provided to the satisfaction of the patient/family/POA.
[2023-04-18] MEDS: LIDOCAINE HCL 1% LOCAL INJ 20 ML VIAL 10 ML INFILTRATE (12:17)
[2023-04-18] MEDS: KETOROLAC 30 MG/ML VIAL (*BKC) IV PUSH (12:19)
--- NOTE | 2023-04-18 12:28 | P.OP_ITS ---
Procedure Note - Detailed Date of Procedure 04/18/23 Pre-op Diagnosis menorrhagia Post-op Diagnosis Same Procedure Performed Alicia endometrial ablation Surgeon Sierra Lewis MD Anesthesia MAC and Local Findings The uterus sounds to 11cm and is grossly menstrual. Description of Procedure The patient is taken to the operating room and placed under anesthesia in the dorsal lithotomy position. She was prepped and draped in usual sterile fashion. [place] speculum was placed in the vagina and the cervix grasped on the anterior lip with a tenaculum. The uterus is sounded to 11cm. The diagnostic hysteroscope is placed and due to the menstrual bleeding lining is difficult to evaluate. Previous findings this month were normal. The cervix is then injected in each quadrant with 1% lidocaine and serially dilated with Hegar to an 8. The Alicia ablation device is opened and placed and set for 6.5 length. Cavity assessment passed on the 1st attempt. Treatment cycle lasted the full 2minutes. The device is then removed. The hysteroscope was again placed and good ablation effect is noted where visible. Instruments are removed. Sponge, needle, and instrument counts are correct per the OR staff. Patient is awakened from anesthesia and taken to recovery in stable condition. Estimated Blood Loss 5 Drains No Packing No Pathology None sent Complications No immediate complications Condition Stable Disposition PACU
[2023-04-18 12:31] VITALS: BP 115/64; PULSE 76; RESP 16; O2SAT 94
[2023-04-18 13:00] VITALS: BP 130/73; PULSE 63; RESP 16; O2SAT 96
[2023-04-18] MEDS: oxyCODONE HCL (*CRX) 5 MG TAB IR PO (13:03)
[2023-04-18 13:30] VITALS: BP 133/59; PULSE 68; RESP 16
== END 2023-04-18 13:40 | disposition home or self-care (01) ==
PROVIDERS: PCP Family Medicine Adolescent Medicine; Visit Provider Obstetrics & Gynecology Gynecology
PROC: 0U5B8ZZ Destruction of Endometrium, Via Natural or Artificial Opening Endoscopic (ICD-10-PCS; CPT 58563; principal; 2023-04-18 11:30)
DX: N92.0 Excessive and frequent menstruation with regular cycle (principal); K21.9 Gastro-esophageal reflux disease without esophagitis; F41.9 Anxiety disorder, unspecified; Z87.891 Personal history of nicotine dependence
CPT/HCPCS: 58563; A9270; J1885; J2250; J2704; J3010; J7120

== ENCOUNTER 2024-04-12 15:36 | Outpatient (CLI) | payer OTHER, SELFPAY ==
--- NOTE | ~2024-04-12 | MM_ITS ---
EXAMINATION: MM screening [facility] w [facility] HISTORY: Screening TECHNIQUE: Craniocaudal and mediolateral oblique 3-D tomosynthesis images were obtained and synthetic 2-D images were generated. CAD analysis was submitted and interpreted. COMPARISON: Comparison to multiple prior studies sequentially, with oldest reviewed study dated 07/31. BREAST PARENCHYMAL COMPOSITION: Not dense: There are scattered areas of fibroglandular density. FINDINGS: There is no evidence of suspicious mass, calcification, or architectural distortion to sugg est malignancy in either breast. There has been no suspicious interval change. IMPRESSION: 1. No mammographic evidence of malignancy. 2. Recommend routine screening mammography in one year. BI-RADS Category 1: Negative Reviewed, dictated and finalized at location B.
== END 2024-04-12 15:37 | disposition home or self-care (01) ==
LOC: MICIMG 15:36
PROVIDERS: PCP Nurse Practitioner; Visit Provider Nurse Practitioner
DX: Z12.31 Encounter for screening mammogram for malignant neoplasm of breast (principal)
CPT/HCPCS: 77063; 77067

== ENCOUNTER 2025-04-30 11:52 | Outpatient (CLI) | payer OTHER, SELFPAY ==
--- NOTE | ~2025-04-30 | MM_ITS ---
EXAMINATION: MM screening [facility] HISTORY: Screening TECHNIQUE: Craniocaudal and mediolateral oblique 3-D tomosynthesis images were obtained and synthetic 2-D images were generated. CAD analysis was submitted and interpreted. COMPARISON: Comparison to multiple prior studies sequentially, with oldest reviewed study dated 12/18/2018. BREAST PARENCHYMAL COMPOSITION: Not dense: There are scattered areas of fibroglandular density. FINDINGS: There is no evidence of suspicious mass, calcification, or architectural distortion to suggest malignancy in either breast. There has been no suspicious interval change. IMPRESSION: 1. No mammographic evidence of malignancy. 2. Recommend routine screening mammography in one year. BI-RADS Category 1: Negative Reviewed, dictated and finalized at location B. [facility]
== END 2025-04-30 11:53 | disposition home or self-care (01) ==
LOC: MICIMG 11:54
PROVIDERS: PCP Family Medicine Adolescent Medicine; Visit Provider Obstetrics & Gynecology Gynecology
DX: Z12.31 Encounter for screening mammogram for malignant neoplasm of breast (principal)
CPT/HCPCS: 77063; 77067